=== PATIENT | female | born 1985 | race American Indian/Alaskan Native ===

== ENCOUNTER 2019-02-12 00:55 | Emergency (ER) | payer SELFPAY ==
[2019-02-12 01:50] LABS: Basophils # (Auto) 0.1 K/mm3 (0.0-0.1); Basophils % (Auto) 0.6 % (0.0-1.8); Eosinophils # (Auto) 0.1 K/mm3 (0.0-0.4); Eosinophils % (Auto) 1.1 % (0.0-4.3); Hematocrit 35.6 % (30.3-42.9); Hemoglobin 12.3 gm/dl (10.1-14.3); Lymphocytes # (Auto) 3.7 K/mm3 (1.2-5.4); Lymphocytes % (Auto) 39.8 % (13.4-35.0); Mean Corpuscular HGB Conc 35 % (30-34); Mean Corpuscular Volume 89 fl (79-97); Monocytes # (Auto) 0.9 K/mm3 (0.0-0.8); Monocytes % (Auto) 9.4 % (0.0-7.3); Platelet Count 286 K/mm3 (140-440); Red Blood Count 4.01 M/mm3 (3.65-5.03)
[2019-02-12 02:08] LABS: Bilirubin,Urine NEG (Negative); Blood,Urine MOD (Negative); Color,Urine Yellow (Yellow); Mucus,Urine FEW /HPF; Protein,Urine <15 mg/dL mg/dL (Negative)
--- NOTE | 2019-02-12 03:35 | Ultrasound Report ---
EXAMINATION: Obstetrical Ultrasound, 02/12/2019 INDICATION: Generalized abdominal pain and cramping in early . COMPARISON: None FINDINGS: Transvaginal and transabdominal imaging was performed. The uterus is normal in size measuring 8.8 x 4.8 x 5.9 cm. There is an oval hypoechoic structure with in the endometrial canal measuring 0.9 cm. No pole or yolk sac is identified. The bilateral adnexal regions appear within normal limits. No free pelvic fluid is identified. IMPRESSION: 1. Oval hypoechoic structure within the endometrial canal which may represent an early gestational s ac although this is indeterminant. If this does represent a gestational sac it would correspond to a 5 week, 3 day . Because findings are indeterminant, close clinical and laboratory evaluation is recommended. Signer Name: Kellie Arauz MD Signed: 02/12/2019 3:31 AM Workstation Name: [id number]
[2019-02-12] MEDS ORDERED: ACETAMINOPHEN 500 MG TAB PO ONE (04:08)
--- NOTE | 2019-02-12 05:08 | Emergency Department Report ---
ED Female HPI - General Chief complaint: Vaginal Bleeding Stated complaint: VAGINAL BLEEDING Source: patient Mode of arrival: Ambulatory Limitations: No Limitations - History of Present Illness Initial comments: Patient is a A0 33-year-old Lithuanian female who is approximately 7 weeks gestation and who presents to the ED with complaint of acute onset persistent suprapubic pain and vaginal bleeding for the last 2 days worse in the last 8 hours. Patient states that the pain has worsened in the last 8 hours. Patient denies fever, chills, nausea, vomiting, dizziness, syncope, chest pain, shortness of breath, vaginal discharge, dysuria, urinary frequency and urgency or headache. MD Complaint: vaginal bleeding, pelvic pain -: Sudden, days(s) (2) Location: suprapubic, other (vaginal) Radiation: non-radiating Severity: moderate Severity scale (0 -10): 5 Quality: cramping, aching Consistency: intermittent Improves with: none Worsens with: movement Are you Now?: Yes Last Menstrual Period: 01/04/19 EDC: 10/11/19 Associated Symptoms: denies other symptoms, vaginal bleeding, abdominal pain. denies: vaginal discharge, nausea/vomiting, fever/chills, headaches, loss of appetite, dysuria, hematuria, rash, seizure, shortness of breath, syncope, weakness - Related Data Sexually active: Yes : 4 Para: 3 A: 0 Previous Rx's Medication Instructions Recorded Last Taken Type Acetaminophen [Acetaminophen TAB] 1,000 mg PO Q6HR PRN #30 tablet 02/12/19 Unknown Rx Allergies Allergy/AdvReac Type Severity Reaction Status Date / Time No Known Allergies Allergy Unverified 02/12/19 01:19 ED Review of Systems ROS: Stated complaint: VAGINAL BLEEDING Other details as noted in HPI Constitutional: denies: chills, fever Eyes: denies: eye pain, eye discharge, vision change ENT: denies: ear pain, throat pain Respiratory: denies: cough, shortness of breath, wheezing Cardiovascular: denies: chest pain, palpitations Endocrine: no symptoms reported Gastrointestinal: abdominal pain (suprapubic). denies: nausea, vomiting, diarrhea, constipation, hematemesis Genitourinary: abnormal menses (vaginal bleeding). denies: urgency, dysuria, discharge Musculoskeletal: denies: back pain, joint swelling, arthralgia Skin: denies: rash, lesions Neurological: denies: headache, weakness, paresthesias Psychiatric: denies: anxiety, depression Hematological/Lymphatic: denies: easy bleeding, easy bruising ED Past Medical Hx - Past Medical History Previous Medical History?: No - Surgical History Past Surgical History?: No - Social History Smoking Status: Never Smoker - Medications Home Medications: Home Medications Medication Instructions Recorded Confirmed Last Taken Type Acetaminophen [Acetaminophen TAB] 1,000 mg PO Q6HR PRN #30 tablet 02/12/19 Unknown Rx ED Physical Exam - General Limitations: No Limitations General appearance: alert, in no apparent distress - Head Head exam: Present: atraumatic, normocephalic, normal inspection - Eye Eye exam: Present: normal appearance, PERRL, EOMI Pupils: Present: normal accommodation - ENT ENT exam: Present: normal exam, normal orophraynx, mucous membranes moist, TM's normal bilaterally, normal external ear exam - Neck Neck exam: Present: normal inspection, full ROM. Absent: tenderness, lymphadenopathy - Respiratory Respiratory exam: Present: normal lung sounds bilaterally. Absent: respiratory distress, wheezes, rales, rhonchi, chest wall tenderness, accessory muscle use, decreased breath sounds - Cardiovascular Cardiovascular Exam: Present: regular rate, normal rhythm, normal heart sounds. Absent: systolic murmur, diastolic murmur, rubs, gallop - GI/Abdominal GI/Abdominal exam: Present: soft, tenderness (mildly tender suprapubic area), normal bowel sounds. Absent: guarding, rebound, hyperactive bowel sounds, hypoactive bowel sounds, organomegaly - Bi-manual exam: Present: other (pelvic exam deferred) - Extremities Exam Extremities exam: Present: normal inspection, full ROM, normal capillary refill. Absent: pedal edema, joint swelling - Back Exam Back exam: Present: normal inspection, full ROM. Absent: tenderness, CVA tenderness (R), muscle spasm, paraspinal tenderness, vertebral tenderness - Neurological Exam Neurological exam: Present: alert, oriented X3, CN II-XII intact, normal gait, reflexes normal - Psychiatric Psychiatric exam: Present: normal affect, normal mood - Skin Skin exam: Present: warm, dry, intact, normal color. Absent: rash ED Course Vital Signs 02/12/19 04:20 Respiratory 16 Rate ED Medical Decision Making - Lab Data Result diagrams: 02/12/19 01:28 - Radiology Data Radiology results: report reviewed, image reviewed Findings [facility] [address] [place] [address] Ultrasound Report Signed Patient: TI GUTIERREZ MR#: [id number] : 1985 Acct:[id number] Age/Sex: 33 / F ADM Date: 02/12/19 Loc: ED Attending Dr: Ordering Physician: YONNY CHENEY Date of Service: 02/12/19 Procedure(s): US OB transvaginal Accession Number(s): [id number] cc: YONNY CHENEY EXAMINATION: Obstetrical Ultrasound, 02/12/2019 INDICATION: Generalized abdominal pain and cramping in early . COMPARISON: None FINDINGS: Transvaginal and transabdominal imaging was performed. The uterus is normal in size measuring 8.8 x 4.8 x 5.9 cm. There is an oval hypoechoic structure within the endometrial canal measuring 0.9 cm. No pole or yolk sac is identified. The bilateral adnexal regions appear within normal limits. No free pelvic fluid is identified. IMPRESSION: 1. Oval hypoechoic structure within the endometrial canal which may represent an early gestational sac although this is indeterminant. If this does represent a gestational sac it would correspond to a 5 week, 3 day . Because findings are indeterminant, close clinical and laboratory evaluation is recommended. Signer Name: Kellie Arauz MD Signed: 02/12/2019 3:31 AM Workstation Name: [id number] Transcribed By: EB Dictated By: Kellie Arauz MD Electronically Authenticated By: Kellie Arauz MD Signed Date/Time: 02/12/19 0331 DD/ 0328 TD/TT: - Medical Decision Making This is a 33-year-old female who is approximately 5 weeks gestation who presented to the ED with complaint of acute onset persistent suprapubic pain with vaginal bleeding for 2 days worse in the last 8 hours. In the ED, patient is alert and oriented 3 and is not in distress. Patient was treated for pain. Lab test results were reviewed and that all unremarkable except for hCG Quant of 2973. The rest of the lab test results are nonactionable. Transvaginal ultrasound shows an oval hypoechoic structure within the endometrial canal which may represent an early gestational sac although this is indeterminant. If this does represent a gestational sac it would correspond to a 5 week, 3 day . Because findings are indeterminant, close clinical and laboratory evaluation is recommended. Patient was advised to maintain a complete pelvic rest and either return to the ED or follow-up with the COMPUTER SECURITY COORDINATOR physician in 48 hours for serial hCG Quant tests to assess the viability of the . Patient was otherwise advised to follow-up with COMPUTER SECURITY COORDINATOR physician in 7-10 days for reevaluation or return to the ED immediately if symptoms get worse. - Differential Diagnosis abdominal pain in ; UTI; Subchorionic bleed; Ovarian cysts Critical care attestation.: If time is entered above; I have spent that time in minutes in the direct care of this critically ill patient, excluding procedure time. ED Disposition Clinical Impression: Threatened miscarriage in early Abdominal pain in Qualifiers: Trimester: first trimester Qualified Code(s): O26.891 - Other specified related conditions, first trimester; R10.9 - Unspecified abdominal pain Disposition: TO HOME OR SELFCARE Is pt being admited?: No Does the pt Need Aspirin: No Condition: Stable Instructions: Abdominal Pain in (ED), Threatened Miscarriage (ED) Additional Instructions: Maintain a complete pelvic rest with no sexual activity or heavy lifting. Follow up with the COMPUTER SECURITY COORDINATOR physician or return to the ED within 48 hours for serial hCG Quant tests. Otherwise follow-up with the COMPUTER SECURITY COORDINATOR physician in 7-10 days for reevaluation. Prescriptions: Acetaminophen [Acetaminophen TAB] 1,000 mg PO Q6HR PRN #30 tablet PRN Reason: Pain , Severe (7-10) Referrals: YAIR BARAHONA MD [Staff Physician] - 3-5 Days Time of Disposition: 05:17 Print Language: YI
== END 2019-02-12 05:34 | disposition home or self-care (01) ==
LOC: ED 00:55
DX: O20.0 Threatened abortion (principal); Z3A.01 Less than 8 weeks gestation of pregnancy
CPT/HCPCS: 36415; 76801; 76817; 81001; 84702; 84703; 85025; 86900; 86901

== ENCOUNTER 2019-05-31 14:35 | Emergency (ER) | payer SELFPAY ==
[2019-05-31 14:46] VITALS: BP 122/82
--- NOTE | 2019-05-31 17:42 | Emergency Department Report ---
Vomiting/Diarrhea - HPI Chief Complaint: Nausea/Vomiting/Diarrhea Stated Complaint: VOMIT/NAUSEA Time Seen by Provider: 05/31/19 16:27 Duration: 2 Days Severity: moderate Nausea/Vomiting Severity: Moderate Diarrhea Severity: None Pain Severity: None Symptoms: No Watery Diarrhea, No Bloody diarrhea, No Fever, No Able to Tolerate Fluids, No Recent Unusual Foods, No Recent Untreated Water, No Recent use of Antibiotics, No Family w/ Similar Symptoms, No Contacts w/ Similar Symptoms, No Rash, No Hematuria, No Recent URI Symptoms Other History: This is a 33-year-old -Indian female who presents to the emergency room with nausea and vomiting for 2 days. Patient states she is unable to keep anything down. Last menstrual period was April 09, 2019, A1. She denies fever, chills, abdominal pain, weakness, chest pain, or sore throat. ED Review of Systems ROS: Stated complaint: VOMIT/NAUSEA Other details as noted in HPI Constitutional: denies: chills, fever ENT: denies: ear pain, throat pain Respiratory: denies: cough, shortness of breath, wheezing Cardiovascular: as per HPI Gastrointestinal: nausea, vomiting. denies: abdominal pain, diarrhea, constipation, hematemesis, melena, hematochezia Genitourinary: denies: urgency, dysuria, discharge Skin: denies: rash, lesions Neurological: denies: headache, weakness, paresthesias Psychiatric: denies: anxiety, depression ED Past Medical Hx - Past Medical History Previous Medical History?: No - Surgical History Past Surgical History?: No - Social History Smoking Status: Never Smoker Substance Use Type: None - Medications Home Medications: Home Medications Medication Instructions Recorded Confirmed Last Taken Type Acetaminophen [Acetaminophen TAB] 1,000 mg PO Q6HR PRN #30 tablet 02/12/19 Unknown Rx Vomiting Diarrhea Exam - Exam General: Vital signs noted. No distress. Alert and acting appropriately. HEENT: Yes Pharyngeal Erythema (Erythematous posterior pharynx, uvula midline), Yes Moist Mucous Membranes, No Pharyngeal Exudates, No Rhinorrhea, No Conjuctival Injection, No Frontal Tenderness, No Maxillary Tenderness Neck: No Adenopathy, No Rigidity Lungs: Yes Clear Lung Sounds, Yes Good Air Exchange, No Wheezes, No Stridor, No Cough, No Nasal Flaring, No Retractions, No Use of Accessory Muscles Heart exam: Regular: Yes, Murmur: No, Tachycardia: No Abdomen: Tenderness: No, Peritoneal Signs: No, Distention: No, Hyperactive Bowel sounds: No Skin exam: Rash: No, Edema: No, Normal turgor: Yes Neurologic: Alert and oriented, no deficits. Musculoskeletal: Unremarkable. ED Course Vital Signs 05/31/19 14:41 Temperature 98.1 F Pulse Rate 86 Respiratory 18 Rate Blood Pressure 122/82 O2 Sat by Pulse 98 Oximetry ED Medical Decision Making - Medical Decision Making 33-year-old female who presents to the emergency room with nausea vomiting for 2 days. Vitals are stable and patient in no acute distress. Work-up: CBC, CMP, and urinalysis. 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 Attempt to speak with patient prior to leaving the ER she refused and left. Critical care attestation.: If time is entered above; I have spent that time in minutes in the direct care of this critically ill patient, excluding procedure time. ED Disposition Clinical Impression: Left against medical advice Disposition: DC-07 LEFT AGAINST MED ADVICE Is pt being admited?: No Condition: Stable Referrals: PRIMARY CARE, [Primary Care Provider] - 3-5 Days Forms: AMA Form
== END 2019-05-31 18:00 | disposition left against medical advice (07) ==
LOC: ED 14:35
DX: R11.2 Nausea with vomiting, unspecified (principal); Z79.899 Other long term (current) drug therapy
CPT/HCPCS: 99282

== ENCOUNTER 2019-09-15 06:08 | Emergency (ER) | payer MEDICAID ==
[2019-09-15 06:28] VITALS: BP 113/74
--- NOTE | 2019-09-15 07:43 | Ultrasound Report ---
OB ULTRASOUND >= 14 WEEKS FETUS ULTRASOUND OB TRANSVAGINAL INDICATION: increased lower abd pain w/15 wk COMPARISON: 02/12/2019 FINDINGS: A single gestation intrauterine is present with variable presentation. The placenta is fund al, grade 0 and free of the cervical os. heart tones measure 144 bpm. Subjective amniotic fluid volume is within normal limits. OZIEL was not measured. The cervix is closed and measures 5.9 cm. anatomical survey was not performed. Biparietal diameter is 3.0 cm which equals 15 weeks 3 days. Head circumference is 11.3 cm which equals 15 weeks 3 days. Abdominal circumference is 8.8 cm which equals 15 weeks 0 days. Femur length is 1.7 cm which equals 15 weeks 0 days. Overall estimated sonographic age is 15 weeks 2 days. EDC 03/06/2020. HC/AC ratio: 1.29 Cephalic index: 81.1 Additional findings: A left ovarian cyst measuring 2.5 x 1.3 cm is identified. The right ovary is obs cured. No pelvic fluid collection. IMPRESSION: Viable single intrauterine as described. No acute abnormality is detected. Left ovarian cyst. Signer Name: Nilesh Stern Jr, MD Signed: 09/15/2019 7:39 AM Workstation Name: [id number]
[2019-09-15 08:47] LABS: Bilirubin,Urine NEG (Negative); Blood,Urine NEG (Negative); Color,Urine Yellow (Yellow); Mucus,Urine FEW /HPF; Protein,Urine <15 mg/dL mg/dL (Negative); Urobilinogen,Urine < 2.0 mg/dL (<2.0)
--- NOTE | 2019-09-15 09:25 | Emergency Department Report ---
ED Female HPI - General Chief complaint: Abdominal Pain Stated complaint: ABD PAIN Time Seen by Provider: 09/15/19 08:22 Source: patient Mode of arrival: Ambulatory Limitations: No Limitations - History of Present Illness Initial comments: 34-year-old -Burmese female who is 5 para 3 currently at 15 weeks complains of lower abdominal pain. She denies any discharge denies any vaginal bleeding she reports that the pain is changed from it and intermittent to constant and more painful. She is not under OB care at this time. She reports she is going to call [facility] today to make an appointment. At this time she denies any pelvic pain. Denies any complications in her prior pregnancies. She has no other past medical history. She does report taking vitamins. MD Complaint: pelvic pain Location: suprapubic Severity scale (0 -10): 0 Quality: cramping Improves with: none Are you Now?: Yes Associated Symptoms: denies other symptoms - Related Data Sexually active: Yes : 5 Para: 3 Previous Rx's Medication Instructions Recorded Last Taken Type Acetaminophen [Acetaminophen TAB] 1,000 mg PO Q6HR PRN #30 tablet 02/12/19 Unknown Rx Allergies Allergy/AdvReac Type Severity Reaction Status Date / Time No Known Allergies Allergy Unverified 02/12/19 01:19 ED Review of Systems ROS: Stated complaint: ABD PAIN Other details as noted in HPI ED Past Medical Hx - Past Medical History Previous Medical History?: No - Surgical History Past Surgical History?: No - Social History Smoking Status: Never Smoker Substance Use Type: None - Medications Home Medications: Home Medications Medication Instructions Recorded Confirmed Last Taken Type Acetaminophen [Acetaminophen TAB] 1,000 mg PO Q6HR PRN #30 tablet 02/12/19 Unknown Rx ED Physical Exam - General Limitations: No Limitations General appearance: alert - Head Head exam: Present: atraumatic, normocephalic - Eye Eye exam: Present: normal appearance - ENT ENT exam: Present: mucous membranes moist - Neck Neck exam: Present: normal inspection, full ROM - Respiratory Respiratory exam: Present: normal lung sounds bilaterally - Cardiovascular Cardiovascular Exam: Present: regular rate - GI/Abdominal GI/Abdominal exam: Present: soft, normal bowel sounds, other. Absent: distended, tenderness - Extremities Exam Extremities exam: Present: normal inspection, full ROM. Absent: pedal edema - Back Exam Back exam: Present: normal inspection, full ROM - Neurological Exam Neurological exam: Present: alert, oriented X3 - Psychiatric Psychiatric exam: Present: normal affect, normal mood - Skin Skin exam: Present: warm, dry, intact, normal color. Absent: rash ED Course Vital Signs 09/15/19 09/15/19 06:26 06:27 Temperature 98.1 F 98.4 F Pulse Rate 82 89 Respiratory 18 18 Rate Blood Pressure 113/74 Blood Pressure 113/74 [Right] O2 Sat by Pulse 99 98 Oximetry ED Medical Decision Making - Lab Data Laboratory Tests 09/15/19 09/15/19 06:48 Unknown HCG, Quant [id number] H Urine Color Yellow Urine Turbidity Clear Urine pH 7.0 Ur Specific [place] 1.014 Urine Protein <15 mg/dl Urine Glucose (UA) Neg Urine Ketones Neg Urine Blood Neg Urine Nitrite Neg Urine Bilirubin Neg Urine Urobilinogen < 2.0 Ur Leukocyte Esterase Neg Urine WBC (Auto) 3.0 Urine RBC (Auto) 1.0 U Epithel Cells (Auto) 1.0 Urine Mucus Few - Radiology Data Radiology results: report reviewed [address] [address] Ultrasound Report Signed Patient: TI GUTIERREZ MR#: [id number] : 1985 Acct:[id number] Age/Sex: 34 / F ADM Date: 09/15/19 Loc: ED Attending Dr: Ordering Physician: SANDRINE GOYAL MD Date of Service: 09/15/19 Procedure(s): US OB >= 14 weeks Fetus Accession Number(s): [id number] cc: SANDRINE GOYAL MD OB ULTRASOUND >= 14 WEEKS FETUS ULTRASOUND OB TRANSVAGINAL INDICATION: increased lower abd pain w/15 wk COMPARISON: 02/12/2019 FINDINGS: A single gestation intrauterine is present with variable presentation. The placenta is fundal, grade 0 and free of the cervical os. heart tones measure 144 bpm. Subjective amniotic fluid volume is within normal limits. OZIEL was not measured. The cervix is closed and measures 5.9 cm. anatomical survey was not performed. Biparietal diameter is 3.0 cm which equals 15 weeks 3 days. Head circumference is 11.3 cm which equals 15 weeks 3 days. Abdominal circumference is 8.8 cm which equals 15 weeks 0 days. Femur length is 1.7 cm which equals 15 weeks 0 days. Overall estimated sonographic age is 15 weeks 2 days. EDC 03/06/2020. HC/AC ratio: 1.29 Cephalic index: 81.1 Additional findings: A left ovarian cyst measuring 2.5 x 1.3 cm is identified. The right ovary is obscured. No pelvic fluid collection. IMPRESSION: Viable single intrauterine as described. No acute abnormality is detected. Left ovarian cyst. Signer Name: Nilesh Izaguirre Jr, MD Signed: 09/15/2019 7:39 AM Workstation Name: [id number] Transcribed By: TTR Dictated By: NILESH IZAGUIRRE JR, MD Electronically Authenticated By: NILESH IZAGUIRRE JR, MD Signed Date/Time: 09/15/19 0739 - Medical Decision Making 34-year-old -Burmese female who is 5 para 3 currently at 15 weeks complains of lower abdominal pain. She denies any discharge denies any vaginal bleeding she reports that the pain is changed from it and intermittent to constant and more painful. She is not under OB care at this time. She reports she is going to call [facility] today to make an appointment. At this time she denies any pelvic pain. Denies any complications in her prior pregnancies. She has no other past medical history. She does report taking vitamins. Ultrasound shows a viable at 15 weeks and 2 days heartbeat in the 140s. Urinalysis is negative for any infection. Patient currently has no pelvic pain at this time. Encourage patient to follow-up at OB clinic take her vitamins as she has and Tylenol only as needed for pain. Increase your water intake. Patient verbalized understanding Critical care attestation.: If time is entered above; I have spent that time in minutes in the direct care of this critically ill patient, excluding procedure time. ED Disposition Clinical Impression: Pain of round ligament during Disposition: DC-01 TO HOME OR SELFCARE Is pt being admited?: No Does the pt Need Aspirin: No Condition: Stable Instructions: Abdominal Pain (ED) Additional Instructions: Ultrasound shows a viable at 15 weeks and 2 days heartbeat in the 140s. Urinalysis is negative for any infection. Patient currently has no pelvic pain at this time. Encourage patient to follow-up at OB clinic take her vitamins as she has and Tylenol only as needed for pain. Increase your water intake. Referrals: PRIMARY CARE, [Primary Care Provider] - 3-5 Days [facility] [Provider Group] - 3-5 Days
== END 2019-09-15 09:33 | disposition home or self-care (01) ==
LOC: ED 06:08
DX: O26.892 Other specified pregnancy related conditions, second trimester (principal); R10.2 Pelvic and perineal pain; Z79.899 Other long term (current) drug therapy; Z3A.15 15 weeks gestation of pregnancy
CPT/HCPCS: 36415; 76805; 76817; 81001; 84702

== ENCOUNTER 2020-03-10 12:21 | Outpatient (CLI) | payer MEDICAID ==
[2020-03-10 14:01] VITALS: BP 117/77
== END 2020-03-10 14:05 | disposition home or self-care (01) ==
LOC: TRG 12:21 → APU 12:22 → TRG 14:05
PROVIDERS: ATTEND Obstetrics & Gynecology
DX: O26.893 Other specified pregnancy related conditions, third trimester (principal); R10.9 Unspecified abdominal pain; R10.2 Pelvic and perineal pain; Z3A.40 40 weeks gestation of pregnancy
CPT/HCPCS: 59025; 87116

== ENCOUNTER 2020-03-18 02:34 | Inpatient (IN) | payer MEDICAID ==
[2020-03-18 03:50] LABS: Bacteria,Urine 1+ /HPF (Negative); Bilirubin,Urine NEG (Negative); Blood,Urine LG (Negative); Color,Urine Yellow (Yellow); Hyaline Casts,Urine 1 /LPF; Protein,Urine <15 mg/dL mg/dL (Negative); Urobilinogen,Urine < 2.0 mg/dL (<2.0)
[2020-03-18 03:53] LABS: Amphetamine Screen,Urine PRESUMPTIVE NEGATIVE; Benzodiazepines Screen,Urine PRESUMPTIVE NEGATIVE; Cannabinoid Screen,Urine PRESUMPTIVE NEGATIVE; Cocaine Screen,Urine PRESUMPTIVE NEGATIVE; Methadone Screen,Urine PRESUMPTIVE NEGATIVE; Opiate Screen,Urine PRESUMPTIVE NEGATIVE
[2020-03-18] MEDS ORDERED: OXYTOCIN 10 UNIT/1 ML INJ IM PRN (05:42)
[2020-03-18] MEDS ORDERED: METHYLERGONOVINE MALEATE 0.2 MG/ML VIAL IM PRN (05:42)
[2020-03-18] MEDS ORDERED: ePHEDrine SULFATE 50 MG/1 ML INJ IV PRN ×2 (05:42→09:12)
[2020-03-18] MEDS ORDERED: NALOXONE 0.4 MG/1 ML INJ IV PRN (05:42)
[2020-03-18] MEDS ORDERED: AMPICILLIN/NS 2 GM/100 ML 2 GM/100 ML BAG IV ONE (05:42)
[2020-03-18] MEDS ORDERED: ONDANSETRON 4 MG/2 ML INJ IV PRN ×2 (05:42→16:37)
[2020-03-18] MEDS ORDERED: ACETAMINOPHEN 325 MG TAB PO PRN (05:42)
[2020-03-18] MEDS ORDERED: LIDOCAINE (2%) 20 MG/1 ML VIAL 20 ML MDV INFILTRATI ONE (05:42)
[2020-03-18] MEDS ORDERED: TERBUTALINE 1 MG/1 ML INJ SUB-Q PRN (05:42)
[2020-03-18] MEDS ORDERED: BUTORPHANOL 2 MG/1 ML INJ IV PRN (05:42)
[2020-03-18] MEDS ORDERED: MINERAL OIL 30 ML ORAL LIQD PO PRN (05:42)
[2020-03-18] MEDS ORDERED: fentaNYL 100 MCG/2 ML INJ IV PRN (05:42)
[2020-03-18] MEDS ORDERED: CARBOPROST TROMETHAMINE 250 MCG/1 ML INJ IM PRN (05:42)
--- NOTE | 2020-03-18 05:55 | History and Physical Report ---
History of Present Illness Date of examination: 03/18/20 (pt presents to Triage with worsening ctx; No PNC @ 41w5d) Chief complaint: " my pains got worse" History of present illness: Pt states she did not seek care because she didn't know she had Medicaid and because of Covid Early US done here @ [facility] 09/15/19 gave an EDC of 03/06/20. Pt states her 3 visits to [facility] are the only PNC she has had. Denies any bleeding or loss of fluid. Pt states no medical or surgical history. Denies any complic ations with her other 3 pregnancies. Pt denies smoking, alcohol consumption, drug use. Consulted with Dr Molina Will admit to L&D All orders in EMR. GBS unknown. Past History Past Medical History: no pertinent history Past Surgical History: no surgical history Family/Genetic History: none Social history: single - Obstetrical History Expected Date of Delivery: 03/06/20 Actual Gestation: 41 Week(s) 5 Day(s) : 4 Para: 3 Hx # Term Pregnancies: 3 (denies any complications) Number of Pregnancies: 0 Spontaneous Abortions: 0 Induced : 0 Number of Living Children: 3 Medications and Allergies Allergies Allergy/AdvReac Type Severity Reaction Status Date / Time No Known Allergies Allergy Verified 03/10/20 13:50 Home Medications Medication Instructions Recorded Confirmed Last Taken Type Acetaminophen [Acetaminophen TAB] 1,000 mg PO Q6HR PRN #30 tablet 02/12/19 Unknown Rx Active Meds: Active Medications Acetaminophen (Acetaminophen 325 Mg Tab) 650 mg PO Q4H PRN PRN Reason: Pain, Mild (1-3) Butorphanol Tartrate (Butorphanol 2 Mg/1 Ml Inj) 1 mg IV Q2H PRN PRN Reason: Pain, Moderate(4-6) LABOR PAIN Carboprost Tromethamine (Carboprost Tromethamine 250 Mcg/1 Ml Inj) 250 mcg IM ONCE PRN PRN Reason: Uterine Bleeding Ephedrine Sulfate (Ephedrine Sulfate 50 Mg/1 Ml Inj) 10 mg IV Q2M PRN PRN Reason: Hypotension Fentanyl (Fentanyl 100 Mcg/2 Ml Inj) 100 mcg IV Q2H PRN PRN Reason: Pain,Severe (7-10) LABOR PAIN Oxytocin/Sodium Chloride (Pitocin/Ns 30 Unit/500ml) 30 units in 500 mls @ 2 mls/hr IV TITR FORTINO; Protocol Lactated Ringer's (Lactated Ringers) 1,000 mls @ 125 mls/hr IV DIRECT FORTINO Oxytocin/Sodium Chloride (Pitocin/Ns 30 Unit/500ml) 30 units in 500 mls @ 40 mls/hr IV TITR FORTINO; Protocol Ampicillin Sodium (Ampicillin/Ns 1 Gm/50 Ml) 1 gm in 50 mls @ 100 mls/hr IV Q4H FORTINO; Protocol Ampicillin Sodium (Ampicillin/Ns 2 Gm/100 Ml) 2 gm in 100 mls @ 100 mls/hr IV ONCE ONE; Protocol Stop: 03/18/20 06:41 Lidocaine (Lidocaine (2%) 20 Mg/1 Ml Vial 20 Ml Mdv) 20 ml INFILTRATI ONCE ONE Stop: 03/18/20 05:43 Methylergonovine Maleate (Methylergonovine Maleate 0.2 Mg/Ml Vial) 0.2 mg IM ONCE PRN PRN Reason: Uterine Bleeding Mineral Oil (Mineral Oil 30 Ml Oral Liqd) 30 ml PO QHS PRN PRN Reason: Constipation Naloxone HCl (Naloxone 0.4 Mg/1 Ml Inj) 0.1 mg IV Q2MIN PRN PRN Reason: Res Rate </= 8 or 02 SAT < 92% Ondansetron HCl (Ondansetron 4 Mg/2 Ml Inj) 4 mg IV Q8H PRN PRN Reason: Nausea And Vomiting Oxytocin (Oxytocin 10 Unit/1 Ml Inj) 10 unit IM ONCE PRN PRN Reason: Uterine Bleeding Terbutaline Sulfate (Terbutaline 1 Mg/1 Ml Inj) 0.25 mg SUB-Q ONCE PRN PRN Reason: Hyperstimulation/Hypertonicity Review of Systems All systems: negative - Vital Signs Vital signs: Vital Signs Pulse Pulse Ox 87 98 03/18/20 02:54 03/18/20 02:54 Temp Pulse Resp BP Pulse Ox 98.5 F 99 H 18 123/77 84 03/18/20 03:18 03/18/20 04:23 03/18/20 03:18 03/18/20 03:18 03/18/20 04:23 - Physical Exam Breasts: Positive: deferred Cardiovascular: Regular rate, Normal S1, Normal S2 Lungs: Positive: Clear to auscultation Abdomen: Positive: normal appearance, soft, normal bowel sounds. Negative: distention, tenderness Genitourinary (Female): Positive: normal external genitalia Vulva: both: normal Vagina: Positive: normal moisture. Negative: discharge Cervix: Negative: lesion, discharge Uterus: Positive: normal size, normal contour Adnexa: both: normal Anus/Rectum: Positive: normal perianal skin, heme negative. Negative: rectal mass, hemorrhoids Extremities: Positive: normal Deep Tendon Reflex Grade: Normal +2 - Obstetrical FHR: category 1 (occ variables) Uterine Contraction Monitor Mode: External Cervical Dilatation: 3 Cervical Effacement Percentage: 70 station: -3 Uterine Contraction Pattern: Regular Uterine Tone Measurement Phase: Resting Uterine Contraction Intensity: Moderate Results Abnormal lab results 03/18/20 Range/Units 03:29 Urine pH 8.0 H (5.0-7.0) Urine WBC (Auto) 13.0 H (0.0-6.0) /HPF All other labs normal. Assessment and Plan 34yo @ 41w5d Dating by early US done here @ [facility] 03/06/20. No care. Dr Molina made aware. All admission orders in EMR Anticipate delivery. - Patient Problems (1) No care in current Onset Date: ~03/18/20 Current Visit: Yes Status: Acute Qualifiers: Trimester: third trimester Qualified Code(s): O09.33 - Supervision of with insufficient care, third trimester Plan to address problem: All PN labs ordered. GBS unknown Ampicillin per protocol. Denies any drug, ETOH, smoking hx. Pt reports she had no complications with her first 3 pregnancies.
[2020-03-18] MEDS ORDERED: OXYTOCIN DRIP 30 UNITS/500 ML BAG IV SCH ×2 (06:00→17:00)
[2020-03-18 06:28] LABS: Hematocrit 33.1 % (30.3-42.9); Mean Corpuscular HGB Conc 33 % (30-34); Mean Corpuscular Volume 84 fl (79-97); Platelet Count 223 K/mm3 (140-440); Red Blood Count 3.94 M/mm3 (3.65-5.03); Red Cell Distribution Width 14.6 % (13.2-15.2)
--- NOTE | 2020-03-18 06:38 | Ultrasound Report ---
ULTRASOUND OBSTETRIC LIMITED ULTRASOUND BIOPHYSICAL PROFILE INDICATION / CLINICAL INFORMATION: OZIEL. well-being. Clinical Gestational Age (GA) in weeks, days: 41, 5 TECHNIQUE: Transabdominal. COMPARISON: Ultrasound dated 03/15/20 FINDINGS: BREATHING MOVEMENT = 2 GROSS BODY MOVEMENT = 2 TONE = 2 QUALITATIVE AMNIOTIC FLUID VOLUME = 2 TOTAL BIOPHYSICAL SCORE = 8/8 HEART RATE (beats per minute): 126 AMNIOTIC FLUID INDEX (cm) = 10.5 (normal = 7-24 cm) PRESENTATION: Cephalic. ADDITIONAL FINDINGS: None. IMPRESSION: 1. Biophysical Score = 8/8 2. Normal amniotic fluid index of 10.5 cm. 3. No significant change. Signer Name: Michel Smith MD Signed: 03/18/2020 6:33 AM Workstation Name: [id number]
[2020-03-18] MEDS: LACTATED RINGERS 1,000 ML IV SCH ×2 (07:17→09:21)
[2020-03-18 07:24] LABS: Hepatitis C Virus Antibody Non-Reactive (NonReactive)
--- NOTE | 2020-03-18 08:20 | Progress Note ---
Objective - Vital Signs Vital Signs: Vital Signs - 12hr 03/18/20 03/18/20 03/18/20 02:54 02:59 03:00 Temperature Pulse Rate 87 74 71 Respiratory Rate Blood Pressure 123/77 Blood Pressure [Left] O2 Sat by Pulse 98 99 Oximetry 03/18/20 03/18/20 03/18/20 03:04 03:09 03:14 Temperature Pulse Rate 78 76 74 Respiratory Rate Blood Pressure Blood Pressure [Left] O2 Sat by Pulse 99 99 98 Oximetry 03/18/20 03/18/20 03/18/20 03:18 03:19 03:24 Temperature 98.5 F Pulse Rate 75 79 79 Respiratory 18 Rate Blood Pressure Blood Pressure 123/77 [Left] O2 Sat by Pulse 98 99 99 Oximetry 03/18/20 03/18/20 03/18/20 03:29 03:34 03:39 Temperature Pulse Rate 77 74 81 Respiratory Rate Blood Pressure Blood Pressure [Left] O2 Sat by Pulse 98 99 98 Oximetry 03/18/20 03/18/20 03/18/20 03:44 03:49 03:54 Temperature Pulse Rate 82 76 71 Respiratory Rate Blood Pressure Blood Pressure [Left] O2 Sat by Pulse 98 100 99 Oximetry 03/18/20 03/18/20 03/18/20 03:59 04:04 04:09 Temperature Pulse Rate 75 72 78 Respiratory Rate Blood Pressure Blood Pressure [Left] O2 Sat by Pulse 100 100 100 Oximetry 03/18/20 03/18/20 03/18/20 04:14 04:19 04:23 Temperature Pulse Rate 67 92 H 99 H Respiratory Rate Blood Pressure Blood Pressure [Left] O2 Sat by Pulse 81 L 85 84 Oximetry 03/18/20 03/18/20 03/18/20 04:24 06:30 06:31 Temperature Pulse Rate 78 77 Respiratory Rate Blood Pressure 145/81 Blood Pressure [Left] O2 Sat by Pulse 81 L 100 Oximetry 03/18/20 03/18/20 03/18/20 06:35 06:40 06:45 Temperature Pulse Rate 81 77 71 Respiratory Rate Blood Pressure Blood Pressure [Left] O2 Sat by Pulse 100 98 98 Oximetry 03/18/20 03/18/20 03/18/20 06:50 06:55 07:00 Temperature Pulse Rate 88 89 101 H Respiratory Rate Blood Pressure Blood Pressure [Left] O2 Sat by Pulse 99 97 97 Oximetry 03/18/20 03/18/20 03/18/20 07:01 07:05 07:10 Temperature Pulse Rate 95 H 95 H 83 Respiratory Rate Blood Pressure 142/83 Blood Pressure [Left] O2 Sat by Pulse 98 97 Oximetry 03/18/20 03/18/20 03/18/20 07:15 07:20 07:25 Temperature Pulse Rate 82 95 H 80 Respiratory Rate Blood Pressure Blood Pressure [Left] O2 Sat by Pulse 99 99 97 Oximetry 03/18/20 03/18/20 03/18/20 07:30 07:31 07:35 Temperature 98.1 F Pulse Rate 85 83 81 Respiratory 16 Rate Blood Pressure 116/74 Blood Pressure 116/74 [Left] O2 Sat by Pulse 97 98 Oximetry 03/18/20 03/18/20 03/18/20 07:40 07:45 07:50 Temperature Pulse Rate 89 83 92 H Respiratory Rate Blood Pressure Blood Pressure [Left] O2 Sat by Pulse 96 95 97 Oximetry 03/18/20 03/18/20 03/18/20 07:55 08:00 08:01 Temperature Pulse Rate 92 H 86 90 Respiratory Rate Blood Pressure 123/81 Blood Pressure [Left] O2 Sat by Pulse 97 97 Oximetry 03/18/20 03/18/20 03/18/20 08:05 08:10 08:15 Temperature Pulse Rate 90 78 84 Respiratory Rate Blood Pressure Blood Pressure [Left] O2 Sat by Pulse 97 96 96 Oximetry - Labs Labs: Abnormal Labs 03/18/20 03/18/20 03:29 05:55 WBC 14.0 H Urine pH 8.0 H Urine WBC (Auto) 13.0 H Laboratory Results - last 24 hr 03/18/20 03/18/20 03/18/20 03:29 03:29 05:55 WBC 14.0 H RBC 3.94 Hgb 11.0 Hct 33.1 MCV 84 MCH 28 MCHC 33 RDW 14.6 Plt Count 223 Urine Color Yellow Urine Turbidity Clear Urine pH 8.0 H Ur Specific [place] 1.006 Urine Protein <15 mg/dl Urine Glucose (UA) Neg Urine Ketones Neg Urine Blood Lg Urine Nitrite Neg Urine Bilirubin Neg Urine Urobilinogen < 2.0 Ur Leukocyte Esterase Mod Urine WBC (Auto) 13.0 H Urine RBC (Auto) 1.0 U Epithel Cells (Auto) 3.0 Urine Bacteria (Auto) 1+ Hyaline Casts 1 Urine Opiates Screen Presumptive negative Urine Methadone Screen Presumptive negative Ur Barbiturates Screen Presumptive negative Ur Phencyclidine Scrn Presumptive negative Ur Amphetamines Screen Presumptive negative U Benzodiazepines Scrn Presumptive negative Urine Cocaine Screen Presumptive negative U Marijuana (THC) Screen Presumptive negative Drugs of Abuse Note Disclamer Syphilis IgG Antibody Hep Bs Antigen Hepatitis C Antibody HIV 1&2 Antibody Rapid HIV P24 Antigen Rubella IgG Antibody Blood Type 03/18/20 03/18/20 03/18/20 05:55 05:55 05:55 WBC RBC Hgb Hct MCV MCH MCHC RDW Plt Count Urine Color Urine Turbidity Urine pH Ur Specific [place] Urine Protein Urine Glucose (UA) Urine Ketones Urine Blood Urine Nitrite Urine Bilirubin Urine Urobilinogen Ur Leukocyte Esterase Urine WBC (Auto) Urine RBC (Auto) U Epithel Cells (Auto) Urine Bacteria (Auto) Hyaline Casts Urine Opiates Screen Urine Methadone Screen Ur Barbiturates Screen Ur Phencyclidine Scrn Ur Amphetamines Screen U Benzodiazepines Scrn Urine Cocaine Screen U Marijuana (THC) Screen Drugs of Abuse Note Syphilis IgG Antibody Nonreactive Hep Bs Antigen Non-reactive Hepatitis C Antibody Non-reactive HIV 1&2 Antibody Rapid HIV P24 Antigen Rubella IgG Antibody Immune Blood Type A POSITIVE 03/18/20 05:55 WBC RBC Hgb Hct MCV MCH MCHC RDW Plt Count Urine Color Urine Turbidity Urine pH Ur Specific [place] Urine Protein Urine Glucose (UA) Urine Ketones Urine Blood Urine Nitrite Urine Bilirubin Urine Urobilinogen Ur Leukocyte Esterase Urine WBC (Auto) Urine RBC (Auto) U Epithel Cells (Auto) Urine Bacteria (Auto) Hyaline Casts Urine Opiates Screen Urine Methadone Screen Ur Barbiturates Screen Ur Phencyclidine Scrn Ur Amphetamines Screen U Benzodiazepines Scrn Urine Cocaine Screen U Marijuana (THC) Screen Drugs of Abuse Note Syphilis IgG Antibody Hep Bs Antigen Hepatitis C Antibody HIV 1&2 Antibody Rapid Non react HIV P24 Antigen Non react Rubella IgG Antibody Blood Type
--- NOTE | 2020-03-18 09:09 | Progress Note ---
Assessment and Plan A: 34 y.o. @ 41.5 wks, no pnc, labor. P: Pt sitting for epidural. Pitocin to be started per protocol. AROM if possible @ next cervical exam. Subjective - Subjective Date of service: 03/18/20 (Pt sitting for epidural.) Principal diagnosis: IUP @ 41.5 wks, no pnc, labor Patient reports: contractions Objective - Vital Signs Vital Signs: Vital Signs - 12hr 03/18/20 03/18/20 03/18/20 02:54 02:59 03:00 Temperature Pulse Rate 87 74 71 Respiratory Rate Blood Pressure 123/77 Blood Pressure [Left] O2 Sat by Pulse 98 99 Oximetry 03/18/20 03/18/20 03/18/20 03:04 03:09 03:14 Temperature Pulse Rate 78 76 74 Respiratory Rate Blood Pressure Blood Pressure [Left] O2 Sat by Pulse 99 99 98 Oximetry 03/18/20 03/18/20 03/18/20 03:18 03:19 03:24 Temperature 98.5 F Pulse Rate 75 79 79 Respiratory 18 Rate Blood Pressure Blood Pressure 123/77 [Left] O2 Sat by Pulse 98 99 99 Oximetry 03/18/20 03/18/20 03/18/20 03:29 03:34 03:39 Temperature Pulse Rate 77 74 81 Respiratory Rate Blood Pressure Blood Pressure [Left] O2 Sat by Pulse 98 99 98 Oximetry 03/18/20 03/18/20 03/18/20 03:44 03:49 03:54 Temperature Pulse Rate 82 76 71 Respiratory Rate Blood Pressure Blood Pressure [Left] O2 Sat by Pulse 98 100 99 Oximetry 03/18/20 03/18/20 03/18/20 03:59 04:04 04:09 Temperature Pulse Rate 75 72 78 Respiratory Rate Blood Pressure Blood Pressure [Left] O2 Sat by Pulse 100 100 100 Oximetry 03/18/20 03/18/20 03/18/20 04:14 04:19 04:23 Temperature Pulse Rate 67 92 H 99 H Respiratory Rate Blood Pressure Blood Pressure [Left] O2 Sat by Pulse 81 L 85 84 Oximetry 03/18/20 03/18/20 03/18/20 04:24 06:30 06:31 Temperature Pulse Rate 78 77 Respiratory Rate Blood Pressure 145/81 Blood Pressure [Left] O2 Sat by Pulse 81 L 100 Oximetry 03/18/20 03/18/2003/18/21 06:35 06:40 06:45 Temperature Pulse Rate 81 77 71 Respiratory Rate Blood Pressure Blood Pressure [Left] O2 Sat by Pulse 100 98 98 Oximetry 03/18/20 03/18/20 03/18/20 06:50 06:55 07:00 Temperature Pulse Rate 88 89 101 H Respiratory Rate Blood Pressure Blood Pressure [Left] O2 Sat by Pulse 99 97 97 Oximetry 03/18/20 03/18/20 03/18/20 07:01 07:05 07:10 Temperature Pulse Rate 95 H 95 H 83 Respiratory Rate Blood Pressure 142/83 Blood Pressure [Left] O2 Sat by Pulse 98 97 Oximetry 03/18/20 03/18/20 03/18/20 07:15 07:20 07:25 Temperature Pulse Rate 82 95 H 80 Respiratory Rate Blood Pressure Blood Pressure [Left] O2 Sat by Pulse 99 99 97 Oximetry 03/18/20 03/18/20 03/18/20 07:30 07:31 07:35 Temperature 98.1 F Pulse Rate 85 83 81 Respiratory 16 Rate Blood Pressure 116/74 Blood Pressure 116/74 [Left] O2 Sat by Pulse 97 98 Oximetry 03/18/20 03/18/20 03/18/20 07:40 07:45 07:50 Temperature Pulse Rate 89 83 92 H Respiratory Rate Blood Pressure Blood Pressure [Left] O2 Sat by Pulse 96 95 97 Oximetry 03/18/20 03/18/20 03/18/20 07:55 08:00 08:01 Temperature Pulse Rate 92 H 86 90 Respiratory Rate Blood Pressure 123/81 Blood Pressure [Left] O2 Sat by Pulse 97 97 Oximetry 03/18/20 03/18/20 03/18/20 08:05 08:10 08:15 Temperature Pulse Rate 90 78 84 Respiratory Rate Blood Pressure Blood Pressure [Left] O2 Sat by Pulse 97 96 96 Oximetry 03/18/20 03/18/20 03/18/20 08:20 08:25 08:30 Temperature Pulse Rate 80 87 85 Respiratory Rate Blood Pressure Blood Pressure [Left] O2 Sat by Pulse 97 98 100 Oximetry 03/18/20 03/18/20 03/18/20 08:31 08:35 08:40 Temperature Pulse Rate 83 79 78 Respiratory Rate Blood Pressure 135/88 Blood Pressure [Left] O2 Sat by Pulse 97 97 Oximetry 0203/18/20 03/18/20 08:45 08:50 08:55 Temperature Pulse Rate 82 100 H 93 H Respiratory Rate Blood Pressure Blood Pressure [Left] O2 Sat by Pulse 100 100 99 Oximetry 03/18/20 03/18/20 09:00 09:01 Temperature Pulse Rate 82 91 H Respiratory Rate Blood Pressure 144/83 Blood Pressure [Left] O2 Sat by Pulse 100 Oximetry - Exam Breasts: deferred Abdomen: Present: normal appearance, soft Vulva: both: normal Uterus: Present: normal FHR: category 1 Uterine Contraction Monitor Mode: External Cervical Dilatation: 3 (Per RN) Cervical Effacement Percentage: 70 station: -2 Uterine Contraction Pattern: Regular Uterine Tone Measurement Phase: Resting Uterine Contraction Intensity: Moderate Extremities: normal Deep Tendon Reflex Grade: Normal +2 - Labs Labs: Abnormal Labs 03/18/20 03/18/20 03:29 05:55 WBC 14.0 H Urine pH 8.0 H Urine WBC (Auto) 13.0 H Laboratory Results - last 24 hr 03/18/20 03/18/20 03/18/20 03:29 03:29 05:55 WBC 14.0 H RBC 3.94 Hgb 11.0 Hct 33.1 MCV 84 MCH 28 MCHC 33 RDW 14.6 Plt Count 223 Urine Color Yellow Urine Turbidity Clear Urine pH 8.0 H Ur Specific [place] 1.006 Urine Protein <15 mg/dl Urine Glucose (UA) Neg Urine Ketones Neg Urine Blood Lg Urine Nitrite Neg Urine Bilirubin Neg Urine Urobilinogen < 2.0 Ur Leukocyte Esterase Mod Urine WBC (Auto) 13.0 H Urine RBC (Auto) 1.0 U Epithel Cells (Auto) 3.0 Urine Bacteria (Auto) 1+ Hyaline Casts 1 Urine Opiates Screen Presumptive negative Urine Methadone Screen Presumptive negative Ur Barbiturates Screen Presumptive negative Ur Phencyclidine Scrn Presumptive negative Ur Amphetamines Screen Presumptive negative U Benzodiazepines Scrn Presumptive negative Urine Cocaine Screen Presumptive negative U Marijuana (THC) Screen Presumptive negative Drugs of Abuse Note Disclamer Syphilis IgG Antibody Hep Bs Antigen Hepatitis C Antibody HIV 1&2 Antibody Rapid HIV P24 Antigen Rubella IgG Antibody Blood Type Antibody Screen 03/18/20 03/18/20 03/18/20 05:55 05:55 05:55 WBC RBC Hgb Hct MCV MCH MCHC RDW Plt Count Urine Color Urine Turbidity Urine pH Ur Specific [place] Urine Protein Urine Glucose (UA) Urine Ketones Urine Blood Urine Nitrite Urine Bilirubin Urine Urobilinogen Ur Leukocyte Esterase Urine WBC (Auto) Urine RBC (Auto) U Epithel Cells (Auto) Urine Bacteria (Auto) Hyaline Casts Urine Opiates Screen Urine Methadone Screen Ur Barbiturates Screen Ur Phencyclidine Scrn Ur Amphetamines Screen U Benzodiazepines Scrn Urine Cocaine Screen U Marijuana (THC) Screen Drugs of Abuse Note Syphilis IgG Antibody Nonreactive Hep Bs Antigen Non-reactive Hepatitis C Antibody Non-reactive HIV 1&2 Antibody Rapid HIV P24 Antigen Rubella IgG Antibody Immune Blood Type A POSITIVE Antibody Screen Negative 03/18/20 05:55 WBC RBC Hgb Hct MCV MCH MCHC RDW Plt Count Urine Color Urine Turbidity Urine pH Ur Specific [place] Urine Protein Urine Glucose (UA) Urine Ketones Urine Blood Urine Nitrite Urine Bilirubin Urine Urobilinogen Ur Leukocyte Esterase Urine WBC (Auto) Urine RBC (Auto) U Epithel Cells (Auto) Urine Bacteria (Auto) Hyaline Casts Urine Opiates Screen Urine Methadone Screen Ur Barbiturates Screen Ur Phencyclidine Scrn Ur Amphetamines Screen U Benzodiazepines Scrn Urine Cocaine Screen U Marijuana (THC) Screen Drugs of Abuse Note Syphilis IgG Antibody Hep Bs Antigen Hepatitis C Antibody HIV 1&2 Antibody Rapid Non react HIV P24 Antigen Non react Rubella IgG Antibody Blood Type Antibody Screen
[2020-03-18] MEDS ORDERED: NalbUPHINE 10 MG/1 ML INJ IV PRN (09:12)
[2020-03-18] MEDS ORDERED: diphenhydrAMINE 50 MG/ML VIAL IV PRN (09:12)
--- NOTE | 2020-03-18 09:14 | Progress Note ---
Labor Epidural - Labor Epidural Start Time: 09:00 Stop Time: 09:15 Performed by:: JEANIE SHEPARD Procedure: Patient is requesting epidural for labor and pain. H&P, labs were reviewed. Patient IDed, H&P reviewed, all questions and concerns were answered, and consent was signed. Timeout was performed at bedside. Patient in sitting position. Sterile prep and drape was performed. 3ml of 1% lidocaine skin wheal at L[3]- L [4]. 18-gauge Tuohy epidural needle was advanced to loss of resistance with air technique cm. Negative CSF negative blood. Epidural catheter advanced to [12] centimeters. [negative] Aspiration [negative] test dose. Sterile dressing applied. Patient tolerated procedure.
--- NOTE | 2020-03-18 09:14 | Anesthesia Consultation ---
Anesthesia Consult and Med Hx Date of service: 03/18/20 - Airway Anesthetic Teeth Evaluation: Good ROM Head & Neck: Adequate Mental/Hyoid Distance: Adequate Mallampati Class: Class II Intubation Access Assessment: Probably Good - Pulmonary Exam CTA: Yes - Cardiac Exam Cardiac Exam: RRR - Pre-Operative Health Status ASA Pre-Surgery Classification: ASA2 Proposed Anesthetic Plan: Epidural - Pulmonary Hx Smoking: No Hx Asthma: No COPD: No Hx Pneumonia: No Hx Sleep Apnea: No - Cardiovascular System Hx Hypertension: No Hx Heart Attack/AMI: No Hx Angina: No - Central Nervous System Hx Seizures: No Hx Psychiatric Problems: No - Gastrointestinal Hx Gastroesophageal Reflux Disease: No - Endocrine Hx Renal Disease: No Hx End Stage Renal Disease: No Hx Insulin Dependent Diabetes: No Hx Non-Insulin Dependent Diabetes: No Hx Hypothyroidism: No Hx Hyperthyroidism: No - Hematic Hx Anemia: No Hx Sickle Cell Disease: No - Other Systems Hx Alcohol Use: No
[2020-03-18] MEDS: OXYTOCIN DRIP 30 UNITS/500 ML BAG IV SCH ×3 (09:29→12:55)
[2020-03-18] MEDS ORDERED: AMPICILLIN/NS 1 GM/50 ML 1 GM/50 ML BAG IV SCH (09:44)
[2020-03-18] MEDS ORDERED: fentaNYL-BUPIV 2 MCG/ML-0.125% 200 MCG/100 ML BAG EPIDURAL SCH (10:00)
--- NOTE | 2020-03-18 12:22 | Progress Note ---
Assessment and Plan A: 34 y.o. @ 41.5 wks, active labor. Cervical exam /-1. AROM: clear fluid. P: Increase pitocin per protocol. Anticipate . Subjective - Subjective Date of service: 03/18/20 (Pt comfortable with epidural. ) Principal diagnosis: IUP @ 41.5 wks, no pnc, labor Patient reports: contractions Objective - Vital Signs Vital Signs: Vital Signs - 12hr 03/18/20 03/18/20 03/18/20 02:54 02:59 03:00 Temperature Pulse Rate 87 74 71 Respiratory Rate Blood Pressure 123/77 Blood Pressure [Left] O2 Sat by Pulse 98 99 Oximetry 03/18/20 03/18/20 03/18/20 03:04 03:09 03:14 Temperature Pulse Rate 78 76 74 Respiratory Rate Blood Pressure Blood Pressure [Left] O2 Sat by Pulse 99 99 98 Oximetry 03/18/20 03/18/20 03/18/20 03:18 03:19 03:24 Temperature 98.5 F Pulse Rate 75 79 79 Respiratory 18 Rate Blood Pressure Blood Pressure 123/77 [Left] O2 Sat by Pulse 98 99 99 Oximetry 03/18/20 03/18/20 03/18/20 03:29 03:34 03:39 Temperature Pulse Rate 77 74 81 Respiratory Rate Blood Pressure Blood Pressure [Left] O2 Sat by Pulse 98 99 98 Oximetry 03/18/20 03/18/20 03/18/20 03:44 03:49 03:54 Temperature Pulse Rate 82 76 71 Respiratory Rate Blood Pressure Blood Pressure [Left] O2 Sat by Pulse 98 100 99 Oximetry 03/18/20 03/18/20 03/18/20 03:59 04:04 04:09 Temperature Pulse Rate 75 72 78 Respiratory Rate Blood Pressure Blood Pressure [Left] O2 Sat by Pulse 100 100 100 Oximetry 03/18/20 03/18/20 03/18/20 04:14 04:19 04:23 Temperature Pulse Rate 67 92 H 99 H Respiratory Rate Blood Pressure Blood Pressure [Left] O2 Sat by Pulse 81 L 85 84 Oximetry 03/18/20 03/18/20 03/18/20 04:24 06:30 06:31 Temperature Pulse Rate 78 77 Respiratory Rate Blood Pressure 145/81 Blood Pressure [Left] O2 Sat by Pulse 81 L 100 Oximetry 03/18/20 03/18/2003/18/21 06:35 06:40 06:45 Temperature Pulse Rate 81 77 71 Respiratory Rate Blood Pressure Blood Pressure [Left] O2 Sat by Pulse 100 98 98 Oximetry 03/18/20 03/18/20 03/18/20 06:50 06:55 07:00 Temperature Pulse Rate 88 89 101 H Respiratory Rate Blood Pressure Blood Pressure [Left] O2 Sat by Pulse 99 97 97 Oximetry 03/18/20 03/18/20 03/18/20 07:01 07:05 07:10 Temperature Pulse Rate 95 H 95 H 83 Respiratory Rate Blood Pressure 142/83 Blood Pressure [Left] O2 Sat by Pulse 98 97 Oximetry 03/18/20 03/18/20 03/18/20 07:15 07:20 07:25 Temperature Pulse Rate 82 95 H 80 Respiratory Rate Blood Pressure Blood Pressure [Left] O2 Sat by Pulse 99 99 97 Oximetry 03/18/20 03/18/20 03/18/20 07:30 07:31 07:35 Temperature 98.1 F Pulse Rate 85 83 81 Respiratory 16 Rate Blood Pressure 116/74 Blood Pressure 116/74 [Left] O2 Sat by Pulse 97 98 Oximetry 03/18/20 03/18/20 03/18/20 07:40 07:45 07:50 Temperature Pulse Rate 89 83 92 H Respiratory Rate Blood Pressure Blood Pressure [Left] O2 Sat by Pulse 96 95 97 Oximetry 03/18/20 03/18/20 03/18/20 07:55 08:00 08:01 Temperature Pulse Rate 92 H 86 90 Respiratory Rate Blood Pressure 123/81 Blood Pressure [Left] O2 Sat by Pulse 97 97 Oximetry 03/18/20 03/18/20 03/18/20 08:05 08:10 08:15 Temperature Pulse Rate 90 78 84 Respiratory Rate Blood Pressure Blood Pressure [Left] O2 Sat by Pulse 97 96 96 Oximetry 03/18/20 03/18/20 03/18/20 08:20 08:25 08:30 Temperature Pulse Rate 80 87 85 Respiratory Rate Blood Pressure Blood Pressure [Left] O2 Sat by Pulse 97 98 100 Oximetry 03/18/20 03/18/20 03/18/20 08:31 08:35 08:40 Temperature Pulse Rate 83 79 78 Respiratory Rate Blood Pressure 135/88 Blood Pressure [Left] O2 Sat by Pulse 97 97 Oximetry 0203/18/20 03/18/20 08:45 08:50 08:55 Temperature Pulse Rate 82 100 H 93 H Respiratory Rate Blood Pressure Blood Pressure [Left] O2 Sat by Pulse 100 100 99 Oximetry 03/18/20 03/18/20 03/18/20 09:00 09:01 09:05 Temperature Pulse Rate 82 91 H 88 Respiratory Rate Blood Pressure 144/83 Blood Pressure [Left] O2 Sat by Pulse 100 99 Oximetry 03/18/20 03/18/20 03/18/20 09:07 09:10 09:11 Temperature Pulse Rate 86 80 89 Respiratory Rate Blood Pressure 128/74 136/78 Blood Pressure [Left] O2 Sat by Pulse 98 Oximetry 03/18/20 03/18/20 03/18/20 09:15 09:18 09:20 Temperature Pulse Rate 81 84 87 Respiratory Rate Blood Pressure 95/52 Blood Pressure [Left] O2 Sat by Pulse 98 97 Oximetry 03/18/20 03/18/20 03/18/20 09:21 09:25 09:27 Temperature Pulse Rate 92 H 89 84 Respiratory Rate Blood Pressure 93/55 98/56 Blood Pressure [Left] O2 Sat by Pulse 97 Oximetry 03/18/20 03/18/20 03/18/20 09:30 09:32 09:35 Temperature Pulse Rate 97 H 100 H 78 Respiratory Rate Blood Pressure 91/53 Blood Pressure [Left] O2 Sat by Pulse 98 97 Oximetry 03/18/20 03/18/20 03/18/20 09:37 09:40 09:42 Temperature Pulse Rate 103 H 104 H 100 H Respiratory Rate Blood Pressure 114/63 83/53 Blood Pressure [Left] O2 Sat by Pulse 97 Oximetry 03/18/20 03/18/20 03/18/20 09:45 09:47 09:50 Temperature Pulse Rate 73 90 114 H Respiratory Rate Blood Pressure 137/74 Blood Pressure [Left] O2 Sat by Pulse 98 98 Oximetry 03/18/20 03/18/20 03/18/20 09:53 09:55 10:00 Temperature Pulse Rate 87 82 99 H Respiratory Rate Blood Pressure 126/73 Blood Pressure [Left] O2 Sat by Pulse 98 97 Oximetry 03/18/20 03/18/20 03/18/20 10:05 10:10 10:15 Temperature Pulse Rate 98 H 93 H 102 H Respiratory Rate Blood Pressure Blood Pressure [Left] O2 Sat by Pulse 97 97 96 Oximetry 03/18/20 03/18/20 03/18/20 10:20 10:24 10:25 Temperature Pulse Rate 100 H 99 H 82 Respiratory Rate Blood Pressure 99/55 Blood Pressure [Left] O2 Sat by Pulse 97 97 Oximetry 03/18/20 03/18/20 03/18/20 10:30 10:35 10:40 Temperature Pulse Rate 88 104 H 104 H Respiratory Rate Blood Pressure Blood Pressure [Left] O2 Sat by Pulse 97 97 97 Oximetry 03/18/20 03/18/20 03/18/20 10:45 10:50 10:54 Temperature Pulse Rate 90 91 H 102 H Respiratory Rate Blood Pressure 69/42 Blood Pressure [Left] O2 Sat by Pulse 97 98 Oximetry 03/18/20 03/18/20 03/18/20 10:55 11:00 11:05 Temperature Pulse Rate 104 H 110 H 117 H Respiratory Rate Blood Pressure Blood Pressure [Left] O2 Sat by Pulse 98 97 98 Oximetry 03/18/20 03/18/20 03/18/20 11:10 11:15 11:20 Temperature Pulse Rate 112 H 96 H 112 H Respiratory Rate Blood Pressure Blood Pressure [Left] O2 Sat by Pulse 97 96 97 Oximetry 03/18/20 03/18/20 03/18/20 11:23 11:25 11:30 Temperature Pulse Rate 110 H 101 H 116 H Respiratory Rate Blood Pressure 89/52 Blood Pressure [Left] O2 Sat by Pulse 98 98 Oximetry 03/18/20 03/18/20 03/18/20 11:35 11:40 11:45 Temperature Pulse Rate 111 H 106 H 103 H Respiratory Rate Blood Pressure Blood Pressure [Left] O2 Sat by Pulse 97 97 97 Oximetry 03/18/20 03/18/20 03/18/20 11:50 11:55 12:00 Temperature Pulse Rate 116 H 114 H 107 H Respiratory Rate Blood Pressure 93/51 Blood Pressure [Left] O2 Sat by Pulse 99 98 98 Oximetry 03/18/20 03/18/20 03/18/20 12:05 12:10 12:15 Temperature Pulse Rate 118 H 112 H 106 H Respiratory Rate Blood Pressure Blood Pressure [Left] O2 Sat by Pulse 98 98 98 Oximetry - Exam Breasts: deferred Cardiovascular: Regular rate Lungs: Normal air movement Abdomen: Present: normal appearance Vulva: both: normal Uterus: Present: normal FHR: category 1 Uterine Contraction Monitor Mode: External Cervical Dilatation: 9 (AROM, clear fluid) Cervical Effacement Percentage: 100 station: -1 Uterine Contraction Pattern: Regular Uterine Tone Measurement Phase: Resting Uterine Contraction Intensity: Moderate Extremities: normal Deep Tendon Reflex Grade: Normal +2 - Labs Labs: Abnormal Labs 03/18/20 03/18/20 03:29 05:55 WBC 14.0 H Urine pH 8.0 H Urine WBC (Auto) 13.0 H Laboratory Results - last 24 hr 03/18/20 03/18/20 03/18/20 03:29 03:29 05:55 WBC 14.0 H RBC 3.94 Hgb 11.0 Hct 33.1 MCV 84 MCH 28 MCHC 33 RDW 14.6 Plt Count 223 Urine Color Yellow Urine Turbidity Clear Urine pH 8.0 H Ur Specific Gary 1.006 Urine Protein <15 mg/dl Urine Glucose (UA) Neg Urine Ketones Neg Urine Blood Lg Urine Nitrite Neg Urine Bilirubin Neg Urine Urobilinogen < 2.0 Ur Leukocyte Esterase Mod Urine WBC (Auto) 13.0 H Urine RBC (Auto) 1.0 U Epithel Cells (Auto) 3.0 Urine Bacteria (Auto) 1+ Hyaline Casts 1 Urine Opiates Screen Presumptive negative Urine Methadone Screen Presumptive negative Ur Barbiturates Screen Presumptive negative Ur Phencyclidine Scrn Presumptive negative Ur Amphetamines Screen Presumptive negative U Benzodiazepines Scrn Presumptive negative Urine Cocaine Screen Presumptive negative U Marijuana (THC) Screen Presumptive negative Drugs of Abuse Note Disclamer Syphilis IgG Antibody Hep Bs Antigen Hepatitis C Antibody HIV 1&2 Antibody Rapid HIV P24 Antigen Rubella IgG Antibody Blood Type Antibody Screen 03/18/20 03/18/20 03/18/20 05:55 05:55 05:55 WBC RBC Hgb Hct MCV MCH MCHC RDW Plt Count Urine Color Urine Turbidity Urine pH Ur Specific Gary Urine Protein Urine Glucose (UA) Urine Ketones Urine Blood Urine Nitrite Urine Bilirubin Urine Urobilinogen Ur Leukocyte Esterase Urine WBC (Auto) Urine RBC (Auto) U Epithel Cells (Auto) Urine Bacteria (Auto) Hyaline Casts Urine Opiates Screen Urine Methadone Screen Ur Barbiturates Screen Ur Phencyclidine Scrn Ur Amphetamines Screen U Benzodiazepines Scrn Urine Cocaine Screen U Marijuana (THC) Screen Drugs of Abuse Note Syphilis IgG Antibody Nonreactive Hep Bs Antigen Non-reactive Hepatitis C Antibody Non-reactive HIV 1&2 Antibody Rapid HIV P24 Antigen Rubella IgG Antibody Immune Blood Type A POSITIVE Antibody Screen Negative 03/18/20 05:55 WBC RBC Hgb Hct MCV MCH MCHC RDW Plt Count Urine Color Urine Turbidity Urine pH Ur Specific Gary Urine Protein Urine Glucose (UA) Urine Ketones Urine Blood Urine Nitrite Urine Bilirubin Urine Urobilinogen Ur Leukocyte Esterase Urine WBC (Auto) Urine RBC (Auto) U Epithel Cells (Auto) Urine Bacteria (Auto) Hyaline Casts Urine Opiates Screen Urine Methadone Screen Ur Barbiturates Screen Ur Phencyclidine Scrn Ur Amphetamines Screen U Benzodiazepines Scrn Urine Cocaine Screen U Marijuana (THC) Screen Drugs of Abuse Note Syphilis IgG Antibody Hep Bs Antigen Hepatitis C Antibody HIV 1&2 Antibody Rapid Non react HIV P24 Antigen Non react Rubella IgG Antibody Blood Type Antibody Screen
--- NOTE | 2020-03-18 15:38 | Procedure Note ---
OB Delivery Note - Delivery Date of Delivery: 03/18/20 Public Policy Manager: TOREY COLON Estimated blood loss: 200cc - Vaginal Delivery presentation: vertex Delivery position: OA Intrapartum events: no care, mult.variable deceleratio Delivery induction: none Delivery augmentation: rupture of membranes, pitocin Delivery monitor: external FHT, external uterine Route of delivery: Delivery placenta: spontaneous Delivery cord: 3 umbilical vessels Episiotomy: none Delivery laceration: none Anesthesia: epidural Delivery comments: of viable male over intact perineum. Infant to mothers chest for skin to skin. Cord cut and clamped after cessation of pulse. Infant handed to [facility] team for evaluation. Spontaneous delivery of placenta complete and intact with 3 vessels noted. Perineum and vagina inspected, no lacerations noted. Fundus firm, minimal bleeding noted. EBL 200. Infant Apgars 8,9. Weight 6-3. and mother left in good condition in the care of RN. Sponges and instruments counted X 2 and correct X 2.
[2020-03-18] MEDS ORDERED: BENZOCAINE/MENTHOL 20/0.5% TOP SPRAY 56 GM TP PRN (16:37)
[2020-03-18] MEDS ORDERED: miSOPROStol 200 MCG TAB PR PRN (16:37)
[2020-03-18] MEDS ORDERED: LANOLIN/ZINC/DIMETHICONE (LANSINOH) 7 GM TP PRN ×2 (16:37)
[2020-03-18] MEDS ORDERED: MAGNESIUM HYDROXIDE (MOM) ORAL LIQD UDC PO PRN (16:37)
[2020-03-18] MEDS ORDERED: PROMETHAZINE 25 MG TAB PO PRN (16:37)
[2020-03-18] MEDS ORDERED: ACETAMINOPHEN 500 MG TAB PO PRN (16:37)
[2020-03-18] MEDS ORDERED: WITCH HAZEL/ GLYCERIN PAD TP PRN (16:37)
[2020-03-18] MEDS ORDERED: LOPERAMIDE 2 MG CAP PO PRN (16:37)
[2020-03-18] MEDS ORDERED: diphenhydrAMINE 25 MG CAP PO PRN (16:37)
[2020-03-18] MEDS: IBUPROFEN 800 MG TAB PO SCH (20:24)
[2020-03-19] MEDS: IBUPROFEN 800 MG TAB PO SCH ×4 (03:25→23:56)
[2020-03-19 07:33] LABS: Hematocrit 26.7 % (30.3-42.9); Hemoglobin 8.8 gm/dl (10.1-14.3)
--- NOTE | 2020-03-19 08:14 | Event Note ---
Date: 03/19/20 Introduced myself to the patient. No complaints, states needs being met. Questions encouraged and answered.
--- NOTE | 2020-03-19 08:26 | Post Anesthesia Evaluation ---
- Post Anesthesia Evaluation Patient Participated: Yes Airway Patent: Yes Stable Respiratory Function: Yes Nausea/Vomiting: No Temp > 96.8F: Yes Pain Manageable: Yes Adequeate Hydration: Yes Anesthesia Complications: No Block Receding Appropriately: Yes Patient on Ventilator: No
--- NOTE | 2020-03-19 08:35 | Discharge Summary ---
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 Primary care physician: MATERIAL DISPATCHER Hospitalization Reason for admission: active labor Delivery: Episiotomy: none Laceration: none Other procedures: none complications: none Discharge diagnosis: IUP at term delivered [place] baby: male Hospital course: S: Pt doing well. Ambulating, voiding, and passing flatus okay. BC: Nuva Ring. O: VSS. Fundus firm, minimal bleeding noted. H/H 8.8/26.7, asymptomatic anemia from delivery. A: 34 y.o. s/p @ 41.5 wks, no PNC. In good condition for discharge home. P: Discharge home with instructions. To schedule a visit. To schedule son's circumcision in 1 week. Condition at discharge: Good Disposition: DC-01 TO HOME OR SELFCARE Plan - Provider Discharge Summary Activity: routine, no sex for 6 weeks, no heavy lifting 4 weeks, no strenuous exercise Diet: routine Instructions: routine Additional instructions: [] Smoking cessation referral if applicable(refer to patient education folder for contact #) [] Refer to [facility] Booklet Call your doctor immediately for: * Fever > 100.5 * Heavy vaginal bleeding ( >1 pad per hour) * Severe persistent headache * Shortness of breath * Reddened, hot, painful area to leg or breast * Drainage or odor from incision. * Keep incision clean and dry at all times and follow doctor's instructions regarding bathing/showering Congratulations on your baby boy!! Please schedule your visit in our office in 4 weeks. Please schedule your son's circumcision appointment in 1 week. You have been prescribed EMLA cream. Please do not use this cream at home, but bring it with you to your son's circumcision appointment. Office contact information: [address] [place], [place] [id number] Driver. [facility], [id number] If you have any you have any questions or concerns after discharge, please do not hesitate to call the office at [phone]. - Follow up plan Follow up: PRIMARY CARE, [Primary Care Provider] - 7 Days
[2020-03-19] MEDS ORDERED: FLU VACC QUAD 2020-2021 (6 months +)/PF 60 0.5 ML SYRINGE IM ONE (12:00)
[2020-03-19] MEDS ORDERED: DIPHtheria,PERTUSSIS(ACELL),TETANUS VACCINE/PF 0.5 ML VIAL IM ONE (17:38)
[2020-03-20] MEDS: IBUPROFEN 800 MG TAB PO SCH ×2 (05:29→12:18)
[2020-03-20] MEDS ORDERED: DIPHtheria,PERTUSSIS(ACELL),TETANUS VACCINE/PF 0.5 ML VIAL IM ONE (06:00)
[2020-03-20] MEDS ORDERED: FLU VACC QUAD 2020-2021 (6 months +)/PF 60 0.5 ML SYRINGE IM ONE (12:00)
[2020-03-20 13:02] VITALS: BP 115/74
== END 2020-03-20 14:58 | disposition home or self-care (01) | DRG 775 ==
LOC: TRG 02:34 → APU 02:52 → LD 05:42 → TRG 05:42 → OB 17:52
PROVIDERS: ADMIT Obstetrics & Gynecology; ATTEND Obstetrics & Gynecology
PROC: 10E0XZZ Delivery of Products of Conception, External Approach (ICD-10-PCS; principal; 2020-03-18)
PROC: 3E0R3BZ Introduction of Anesthetic Agent into Spinal Canal, Percutaneous Approach (ICD-10-PCS; 2020-03-18)
PROC: 00HU33Z Insertion of Infusion Device into Spinal Canal, Percutaneous Approach (ICD-10-PCS; 2020-03-18)
PROC: 10907ZC Drainage of Amniotic Fluid, Therapeutic from Products of Conception, Via Natural or Artificial Opening (ICD-10-PCS; 2020-03-18)
PROC: 3E0234Z Introduction of Serum, Toxoid and Vaccine into Muscle, Percutaneous Approach (ICD-10-PCS; 2020-03-19)
DX: O76 Abnormality in fetal heart rate and rhythm complicating labor and delivery (principal); Z3A.41 41 weeks gestation of pregnancy; Z37.0 Single live birth; Z20.822 Contact with and (suspected) exposure to COVID-19; Z23 Encounter for immunization; O09.33 Supervision of pregnancy with insufficient antenatal care, third trimester
CPT/HCPCS: 36415; 59025; 76815; 76819; 80307; 81001; 85014; 85018; 85027; 86592; 86706; 86762; 86803; 86850; 86900; 86901; 87086; 87806; 90471; 90686; 90715; G0378; J0290; J2590; J3010; J7120; U0003